=== PATIENT | male | born 1955 | race Caucasian/White ===

== ENCOUNTER 2017-06-04 16:53 | Emergency (ER) | payer OTHER ==
[2017-06-04 17:08] VITALS: BP 143/67; PULSE 76; RESP 18; TEMP 98.9; O2SAT 99
[2017-06-04 18:10] LABS: BILIRUBIN, URINE NEG (NEG); BLOOD, URINE NEG (NEG); GLUCOSE,URINE 1000 mg/dL (NEG); KETONE, URINE 40 mg/dL (NEG); NITRITE,URINE NEG (NEG); PH, URINE 6.5 (5.0-8.5); SQUAMOUS EPITHELIAL CELL URINE 1 /hpf (0-5); URINE COLOR LIGHT-YELLOW (YELLW/STRAW); URINE LEUKOCYTE ESTERASE NEG (NEG)
[2017-06-04 18:10] LABS: AUTOMATED NEUTROPHIL # 5.3 TH/MM3 (1.8-7.7); BASOPHIL % 0.1 % (0.0-2.0); EOSINOPHIL % 0.3 % (0.0-4.0); HEMATOCRIT 32.6 % (39.0-51.0); LYMPH % 8.8 % (9.0-44.0); LYMPHOCYTE # 0.5 TH/MM3 (1.0-4.8); MEAN CELL VOLUME 89.6 FL (80.0-100.0); MEAN CORPUSCULAR HEMOGLOBIN 30.2 PG (27.0-34.0); MEAN CORPUSCULAR HGB CONC 33.7 % (32.0-36.0); MEAN PLATELET VOLUME 9.8 FL (7.0-11.0); MONO % 6.1 % (0.0-8.0); MONOCYTE # 0.4 TH/MM3 (0-0.9); NEUT % 84.7 % (16.0-70.0); PLATELET COUNT 176 TH/MM3 (150-450); RED BLOOD COUNT 3.65 MIL/MM3 (4.50-5.90); RED CELL DISTRIBUTION WIDTH 14.1 % (11.6-17.2); WHITE BLOOD COUNT 6.2 TH/MM3 (4.0-11.0)
[2017-06-04 18:26] LABS: BICARBONATE 25.9 MEQ/L (21.0-32.0); CALCIUM 8.6 MG/DL (8.5-10.1); CREATININE 1.21 MG/DL (0.60-1.30)
[2017-06-04] MEDS ORDERED: LISI40TA PO (18:35)
[2017-06-04] MEDS ORDERED: METF1000 PO (18:35)
[2017-06-04] MEDS ORDERED: ZOCO40TA PO (18:35)
[2017-06-04] MEDS ORDERED: LANTUS2P SQ (18:35)
[2017-06-04 18:36] VITALS: BP 167/79; PULSE 67; RESP 18; O2SAT 99
[2017-06-04] MEDS ORDERED: SODIUM CHLOR 0.9% 1000 ML INJ 1,000 ML IV ONE ×2 (19:00)
[2017-06-04] MEDS ORDERED: INSULIN HUMAN REGULAR 1,000 UNITS/10 ML VIAL IV PUSH ONE (19:00)
--- NOTE | 2017-06-04 19:12 | PD ---
HPI Chief Complaint: Diabetic Time Seen by Provider: 18:40 Travel History International Travel<30 days: No Contact w/Intl Traveler<30days: No Traveled to known affect area: No History of Present Illness HPI 61-year-old male presents to the emergency department for evaluation of hyperglycemia. Patient states that he was sent by the [facility] for elevated blood glucose. Patient reports being a type II diabetic. He is currently on Metformin and Lantus. However, he has been out of his Lantus for several days. Patient states that he also has hyperlipidemia and hypertension. He is taking lisinopril and Zocor. He states that he is also taking his metformin, but not his Lantus. He reports a rash to his bilateral lower extremities. He denies any other symptoms or complaints. No fevers or chills. No chest pain or shortness of breath. No abdominal pain. Nausea, vomiting, diarrhea. Moderate severity. PFSH Past Medical History High Cholesterol: Yes Diabetes: Yes Patient Takes Glucophage: Yes Diminished Hearing: No Hypertension: Yes Tetanus Vaccination: Unknown Influenza Vaccination: No Past Surgical History Surgical History: No Previous Surgery Social History Alcohol Use: No Tobacco Use: No Substance Use: No Allergies-Medications (Allergen,Severity, Reaction): Coded Allergies: No Known Allergies (Verified Allergy, Unknown, 06/04/17) Reported Meds & Prescriptions Reported Meds & Active Scripts Active Reported Zocor (Simvastatin) 40 Mg Tab 40 Mg PO HS Lisinopril 40 Mg Tab 40 Mg PO DAILY Metformin (Metformin HCl) 1,000 Mg Tab 1,000 Mg PO BIDPC Lantus Inj (Insulin Glargine) 1,000 Unit/10 Ml Vial 40 Units SQ HS Review of Systems Except as stated in HPI: all other systems reviewed are Neg Physical Exam Narrative GENERAL: Well-nourished, well-developed male patient, afebrile. SKIN: Focused skin assessment warm/dry. Patient has nonspecific erythematous patchy rash to bilateral lower extremities. No evidence of cellulitis or infection. HEAD: Normocephalic. Atraumatic. EYES: No scleral icterus. No injection or drainage. NECK: Supple, trachea midline. No JVD or lymphadenopathy. CARDIOVASCULAR: Regular rate and rhythm without murmurs, gallops, or rubs. Bilateral pedal pulses are 2+ RESPIRATORY: Breath sounds equal bilaterally. No accessory muscle use. Lung sounds are clear to auscultation GASTROINTESTINAL: Abdomen soft, non-tender, nondistended. MUSCULOSKELETAL: No cyanosis, or edema. BACK: Nontender without obvious deformity. No CVA tenderness. Data Data Last Documented VS Vital Signs Date Time Temp Pulse Resp B/P (MAP) Pulse Ox O2 Delivery O2 Flow Rate FiO2 06/04/17 19:20 63 14 164/80 (108) 97 Room Air 06/04/17 17:08 98.9 Orders Orders Complete Blood Count With Diff (06/04/17 17:13) Basic Metabolic Panel (Bmp) (06/04/17 17:13) Beta Hydroxybutyrate (Acetone) (06/04/17 17:13) Urinalysis - C+S If Indicated (06/04/17 17:13) Sodium Chlor 0.9% 1000 Ml Inj (Ns 1000 M (06/04/17 19:00) Sodium Chlor 0.9% 1000 Ml Inj (Ns 1000 M (06/04/17 19:00) Insulin Human Regular Inj (Novolin R Inj (06/04/17 19:00) Labs Laboratory Tests Test 06/04/17 17:18 06/04/17 17:20 White Blood Count 6.2 TH/MM3 Red Blood Count 3.65 MIL/MM3 Hemoglobin 11.0 GM/DL Hematocrit 32.6 % Mean Corpuscular Volume 89.6 FL Mean Corpuscular Hemoglobin 30.2 PG Mean Corpuscular Hemoglobin Concent 33.7 % Red Cell Distribution Width 14.1 % Platelet Count 176 TH/MM3 Mean Platelet Volume 9.8 FL Neutrophils (%) (Auto) 84.7 % Lymphocytes (%) (Auto) 8.8 % Monocytes (%) (Auto) 6.1 % Eosinophils (%) (Auto) 0.3 % Basophils (%) (Auto) 0.1 % Neutrophils # (Auto) 5.3 TH/MM3 Lymphocytes # (Auto) 0.5 TH/MM3 Monocytes # (Auto) 0.4 TH/MM3 Eosinophils # (Auto) 0.0 TH/MM3 Basophils # (Auto) 0.0 TH/MM3 CBC Comment DIFF FINAL Differential Comment Blood Urea Nitrogen 19 MG/DL Creatinine 1.21 MG/DL Random Glucose 578 MG/DL Calcium Level 8.6 MG/DL Sodium Level 130 MEQ/L Potassium Level 4.8 MEQ/L Chloride Level 96 MEQ/L Carbon Dioxide Level 25.9 MEQ/L Anion Gap 8 MEQ/L Estimat Glomerular Filtration Rate 61 ML/MIN B-Hydroxybutyrate 1.75 MMOL/L Urine Color LIGHT-YELLOW Urine Turbidity CLEAR Urine pH 6.5 Urine Specific [place] 1.033 Urine Protein 30 mg/dL Urine Glucose (UA) 1000 mg/dL Urine Ketones 40 mg/dL Urine Occult Blood NEG Urine Nitrite NEG Urine Bilirubin NEG Urine Urobilinogen LESS THAN 2.0 MG/DL Urine Leukocyte Esterase NEG Urine WBC 2 /hpf Urine Squamous Epithelial Cells 1 /hpf Microscopic Urinalysis Comment CULT NOT INDICATED MDM Medical Decision Making Medical Screen Exam Complete: Yes Emergency Medical Condition: Yes Medical Record Reviewed: Yes Differential Diagnosis Hyperglycemia versus DKA versus electrolyte abnormality Narrative Course 61-year-old male presents to the emergency department for evaluation of hyperglycemia, out of his Lantus. CBC shows no acute abnormality. BMP shows sodium 130, BUN 19, hyperglycemia of 578. Beta hydroxybutyrate is 1.75. UA shows 1000 glucose, 40 ketones. Patient is given normal saline 2 L IV bolus, regular insulin 6 units IV. Recheck of blood glucose is 386. Patient states that his primary care physician has Arty refilled his Lantus and he will pick it up in the morning. He is instructed to monitor his blood sugar and follow-up with his primary care physician. The patient was discharged in stable condition with instructions, including return instructions and follow up instructions. Diagnosis Primary Impression: Hyperglycemia Referrals: Primary Care Physician call for appointment Patient Instructions: Diabetic Hyperglycemia (ED), General Instructions Additional Instructions: Restart your Lantus. Continue metformin. Monitor blood glucose. Follow-up with a primary care physician. Return to the emergency department for any acute worsening of symptoms. Med/Other Pt SpecificInfo: No Change to Meds Disposition: 01 DISCHARGE HOME Condition: Stable Sylvia Marroquin MANSI Jun 04, 2017 19:12
[2017-06-04 19:20] VITALS: BP 164/80; PULSE 63; RESP 14; O2SAT 97
== END 2017-06-04 22:51 | disposition home or self-care (01) ==
LOC: NEPC 16:53
DX: E11.65 Type 2 diabetes mellitus with hyperglycemia (principal); E78.00 Pure hypercholesterolemia, unspecified; I10 Essential (primary) hypertension; Z79.4 Long term (current) use of insulin
CPT/HCPCS: 80048; 81001; 82010; 85025; 96361; 96374; 99284; J1815; J7030